=== PATIENT | female | born 1985 | race Caucasian/White ===

== ENCOUNTER 2016-06-29 12:00 | Emergency (ER) | payer MEDICAID ==
[~2016-06-29] VITALS: Ht 152.4 cm; Wt 81.6 kg
[~2016-06-29 12:00] MED LIST: MOTRIN PRN PAIN; MOTRIN800 MG PO; PRENATAL1 TA1 PO
[2016-06-29 12:25] VITALS: BP 142/73
--- NOTE | 2016-06-29 12:54 | NUR ---
Patient ambulated to bed 07.
--- NOTE | 2016-06-29 12:59 | NUR ---
PATIENT PRESENTS TO ED WITH COUGH X1 WEEK, SORE THROAT AND SOB . DENIES N/V/D; SKIN IS PINK/WARM/DRY; AAOX4 WITH EVEN AND STEADY GAIT; LUNGS CLEAR BL; HR EVEN AND REGULAR; PT DENIES ANY FEVER, CP AT THIS TIME; PATIENT STATES SORE THROAT 7/10 AT THIS TIME; VSS; PATIENT POSITIONED FOR COMFORT; HOB ELEVATED; BEDRAILS UP X2; BED DOWN. ER MD MADE AWARE OF PT STATUS.
--- NOTE | 2016-06-29 13:00 | NUR ---
Dr. Champagne evaluating patient at bedside.
[2016-06-29 13:15] VITALS: BP 113/76
--- NOTE | 2016-06-29 13:15 | NUR ---
Patient discharged with v/s stable. Written and verbal after care instructions given and explained. Patient alert, oriented and verbalized understanding of instructions. Ambulatory with steady gait. All questions addressed prior to discharge. ID band removed. Patient advised to follow up with PMD. Rx of DM/PHENERGAN given. Patient educated on indication of medication including possible reaction and side effects. Opportunity to ask questions provided and answered.
== END 2016-06-29 13:15 | disposition home or self-care (01) ==
LOC: MED 12:00
DX: J06.9 Acute upper respiratory infection, unspecified (principal); Z90.49 Acquired absence of other specified parts of digestive tract

== ENCOUNTER 2016-11-10 10:59 | Emergency (ER) | payer MEDICAID ==
[~2016-11-10] VITALS: Ht 157.5 cm; Wt 89.9 kg
[2016-11-10 11:26] VITALS: BP 125/87
--- NOTE | 2016-11-10 13:00 | NUR ---
Pt taken to bed 8.
--- NOTE | 2016-11-10 13:16 | NUR ---
31/F c/o burning sensation inside her abdomen and chest. Pt denies pain, denies chest pain, denies SOB. Pt states the sensation started 3 days ago but has been constant today. Denies medical hx. c/o nausea but denies V/D. AOX4, clear speech. Skin warm and dry, normal in color for ethnicity. VSS. Pt placed in position of comfort. All needs addressed. Awaiting ERMD.
--- NOTE | 2016-11-10 13:43 | NUR ---
Patient being evaluated by physician at bedside.
[2016-11-10] MEDS ORDERED: ALUMINUM HYD/MAG/SIMETHICONE 30 ML, DICYCLOMINE HCL LIQUID 20 MG, LIDOCAINE VISCOUS 2% ... PO ONE ×3 (13:45)
--- NOTE | 2016-11-10 13:59 | NUR ---
X-Ray at bedside.
[2016-11-10 14:44] LABS: BASOPHILS # (AUTO) 0.2 K/uL (0.00-0.22); EOSINOPHILS # (AUTO) 0.3 K/uL (0-0.4); EOSINOPHILS % (AUTO) 2.8 % (0.0-4.0); HEMATOCRIT 39.6 % (36-48); HEMOGLOBIN 13.6 g/dL (12.0-16.0); LYMPHOCYTES # (AUTO) 2.4 K/uL (2.5-16.5); LYMPHOCYTES % (AUTO) 24.4 % (20.5-51.1); MEAN CORPUSCULAR HEMOGLOBIN 32 pg (27-31); MEAN CORPUSCULAR HGB CONC 35 g/dL (33-37); MEAN CORPUSCULAR VOLUME 92 fL (80-94); MONOCYTES # (AUTO) 0.7 K/uL (0.8-1.0); MONOCYTES % (AUTO) 7.2 % (1.7-9.3); NEUTROPHILS # (AUTO) 6.1 K/uL (1.8-7.7); PLATELET COUNT (AUTO) 254 K/uL (140-450); RED BLOOD CELL COUNT(AUTO) 4.33 MIL/uL (4.20-5.40); WHITE BLOOD COUNT (AUTO) 9.7 K/uL (4.8-10.8)
--- NOTE | 2016-11-10 14:44 | NUR ---
Patient appears to be resting comfortably in bed. VSS.
[2016-11-10 15:00] LABS: ALBUMIN 3.4 g/dL (3.4-5.0); ANION GAP 11.7 (8-16); CALCIUM 8.1 mg/dL (8.5-10.1); CARBON DIOXIDE 28.6 mmol/L (21-32); CREATININE 0.6 mg/dL (0.6-1.3); POTASSIUM 3.3 mmol/L (3.5-5.1); TOTAL BILIRUBIN 0.3 mg/dL (0.0-1.0); TOTAL PROTEIN, SERUM 7.3 g/dL (6.4-8.2)
[2016-11-10 15:06] LABS: PARTIAL THROMBOPLASTIN TIME 25.4 secs (22-35.6); PROTHROMBIN TIME 10.2 secs (10.8-13.4)
--- NOTE | 2016-11-10 15:50 | NUR ---
PATIENT ELOPED FROM FACILITY. DISCHARGE INSTRUCTIONS NOT GIVEN TO PATIENT. DR. MULLEN NOTIFIED.
[2016-11-10 15:55] VITALS: BP 120/74
== END 2016-11-10 15:50 | disposition left against medical advice (07) ==
LOC: MED 10:59
DX: R07.9 Chest pain, unspecified (principal); R53.1 Weakness; R10.13 Epigastric pain; G89.29 Other chronic pain; M54.9 Dorsalgia, unspecified; Z90.49 Acquired absence of other specified parts of digestive tract
CPT/HCPCS: 36415; 71010; 80053; 81002; 81025; 83880; 84484; 85025; 85610; 85730; 93005; 99285; Q0092

== ENCOUNTER 2017-07-16 07:55 | Emergency (ER) | payer MEDICAID ==
[~2017-07-16] VITALS: Ht 152.4 cm; Wt 85.4 kg
[2017-07-16 08:01] VITALS: BP 126/76
--- NOTE | 2017-07-16 08:04 | NUR ---
PT AMBULATES TO BED 3
[2017-07-16 08:40] LABS: BASOPHILS # (AUTO) 0.2 K/uL (0.00-0.22); BASOPHILS % (AUTO) 2.3 % (0.0-2.0); EOSINOPHILS # (AUTO) 0.1 K/uL (0-0.4); EOSINOPHILS % (AUTO) 1.3 % (0.0-4.0); HEMATOCRIT 37.7 % (36-48); HEMOGLOBIN 12.7 g/dL (12.0-16.0); LYMPHOCYTES # (AUTO) 2.2 K/uL (2.5-16.5); LYMPHOCYTES % (AUTO) 22.1 % (20.5-51.1); MEAN CORPUSCULAR HEMOGLOBIN 31 pg (27-31); MEAN CORPUSCULAR HGB CONC 34 g/dL (33-37); MEAN CORPUSCULAR VOLUME 91 fL (80-94); MONOCYTES # (AUTO) 0.9 K/uL (0.8-1.0); NEUTROPHILS # (AUTO) 6.6 K/uL (1.8-7.7); NEUTROPHILS % (AUTO) 65.3 % (42.2-75.2); PLATELET COUNT (AUTO) 309 K/uL (140-450); RED BLOOD CELL COUNT(AUTO) 4.15 MIL/uL (4.20-5.40); RED CELL DISTRIBUTION WIDTH 12.6 % (11.6-13.7); WHITE BLOOD COUNT (AUTO) 9.9 K/uL (4.8-10.8)
[2017-07-16 08:54] LABS: ANION GAP 12.4 (8-16); CARBON DIOXIDE 25.1 mmol/L (21-32); CREATININE 0.6 mg/dL (0.6-1.3); POTASSIUM 3.5 mmol/L (3.5-5.1)
[2017-07-16 09:09] LABS: ALBUMIN 3.2 g/dL (3.4-5.0); THYROID STIMULATING HORMONE 0.24 uIU/mL (0.34-3.74); TOTAL BILIRUBIN 0.3 mg/dL (0.0-1.0)
[2017-07-16 10:50] VITALS: BP 128/75
--- NOTE | 2017-07-16 10:52 | NUR ---
pt stated understood all informtion givenupon d/c home vitals stable follow up care given all text explained to pt by pain scale 0/10 at time of discharge.
== END 2017-07-16 10:52 | disposition home or self-care (01) ==
LOC: MED 07:55
DX: E03.9 Hypothyroidism, unspecified (principal); Z90.49 Acquired absence of other specified parts of digestive tract
CPT/HCPCS: 36415; 76536; 80053; 84443; 85025; 99285; Q0092

== ENCOUNTER 2018-01-04 00:40 | Emergency (ER) | payer MEDICAID ==
[~2018-01-04] VITALS: Ht 152.4 cm; Wt 81.6 kg
[2018-01-04 00:50] VITALS: BP 126/84
--- NOTE | 2018-01-04 00:55 | NUR ---
PT TAKEN TO BED 8
--- NOTE | 2018-01-04 01:10 | NUR ---
Patient presents to ED with complaints of cough for the past 2 weeks. Pt found resting comfortably in bed. No respiratory distress. No cough noted during assessment. Lungs clear bilaterally. Pt also c/o nasal congestion. No rhinorrhea noted. AOX4, clear speech. VSS. Pt appears comfortably. NAD noted. Pending x-ray exam.
--- NOTE | 2018-01-04 01:13 | NUR ---
X-Ray at bedside.
[2018-01-04 01:37] VITALS: BP 126/84
--- NOTE | 2018-01-04 01:37 | NUR ---
Patient discharged with v/s stable. Written and verbal after care instructions given and explained. Patient alert, oriented and verbalized understanding of instructions. Ambulatory with steady gait. All questions addressed prior to discharge. ID band removed. Patient advised to follow up with PMD. Rx of Prednisone, Promethazine, Flonase given. Patient educated on indication of medication including possible reaction and side effects. Opportunity to ask questions provided and answered.
== END 2018-01-04 01:37 | disposition home or self-care (01) ==
LOC: MED 00:40
DX: J30.9 Allergic rhinitis, unspecified (principal); E03.9 Hypothyroidism, unspecified
CPT/HCPCS: 71045; 99283; Q0092

== ENCOUNTER 2018-02-13 07:50 | Emergency (ER) | payer MEDICAID ==
[~2018-02-13] VITALS: Ht 152.4 cm; Wt 86.2 kg
[2018-02-13 07:55] VITALS: BP 131/76
[2018-02-13] MEDS: KETOROLAC 30 MG/ML VIAL IM ONE (08:40)
[2018-02-13 09:00] VITALS: BP 131/76
== END 2018-02-13 09:00 | disposition home or self-care (01) ==
LOC: MED 07:50
DX: R09.1 Pleurisy (principal); R05 Cough; M54.6 Pain in thoracic spine; E03.9 Hypothyroidism, unspecified
CPT/HCPCS: 71045; 96372; 99283; J1885; Q0092

== ENCOUNTER 2019-03-05 20:33 | Emergency (ER) | payer MEDICAID ==
[~2019-03-05] VITALS: Ht 157.5 cm; Wt 90.7 kg
[2019-03-05 20:47] VITALS: BP 141/91
--- NOTE | 2019-03-05 20:59 | NUR ---
PT TAKEN TO BED 3
--- NOTE | 2019-03-05 21:02 | NUR ---
33/F PRESENTED TO ED WITH C/O STATES FOR THE LAST THREE DAYS SHE HAS FELT THAT SOMETHING IS IN HER R EYE AND NOW IT IS SWOLLEN AND SHE IS HAVING DIFFICULTY WITH VISION. PT STATES SHE'S SEEING SPOTS IN THE R EYE. +SWELLING, +REDNESS NOTED. REPORTED PAIN 7/10 PMH:NONE NKA
[2019-03-05] MEDS ORDERED: FLUORESCEIN OPTH STRIP 0.6 MG OP ONE (21:20)
[2019-03-05] MEDS ORDERED: TETRACAINE HCL/PF 0.5% OPTH 4 ML BTL OP ONE (21:20)
--- NOTE | 2019-03-05 21:21 | NUR ---
Dr. Johnson examining patient.
[2019-03-05] MEDS ORDERED: ERYTHROMYCIN 0.5% OPTH OINT 1 GM TUBE OP ONE (21:55)
[2019-03-05] MEDS ORDERED: ERYTHROMYCIN 0.5% OPTH OINT 1 GM TUBE ONE (22:06)
[2019-03-05 22:23] VITALS: BP 135/88
--- NOTE | 2019-03-05 22:23 | NUR ---
Patient discharged with v/s stable. Written and verbal after care instructions given and explained. Patient alert, oriented and verbalized understanding of instructions. Ambulatory with steady gait. All questions addressed prior to discharge. ID band removed. Patient advised to follow up with PMD. Rx of NORCO, ERYTHROMYCIN given. Patient educated on indication of medication including possible reaction and side effects. Opportunity to ask questions provided and answered.
== END 2019-03-05 22:23 | disposition home or self-care (01) ==
LOC: MED 20:33
DX: S05.01XA Injury of conjunctiva and corneal abrasion without foreign body, right eye, initial encounter (principal); Z90.49 Acquired absence of other specified parts of digestive tract; Z98.890 Other specified postprocedural states; X58.XXXA Exposure to other specified factors, initial encounter; Y93.89 Activity, other specified; Y92.89 Other specified places as the place of occurrence of the external cause; Y99.8 Other external cause status
CPT/HCPCS: 99284

== ENCOUNTER 2019-03-12 11:27 | Emergency (ER) | payer MEDICAID ==
[~2019-03-12] VITALS: Ht 157.5 cm; Wt 90.7 kg
[2019-03-12 11:29] VITALS: BP 126/80
--- NOTE | 2019-03-12 11:29 | NUR ---
33F C/O LT EYE SWELLING AND PAIN X 2 DAYS. DENIES TRAUMA BUT STATES "MAYBE SOMETHING FLEW IN MY EYE". STATES ITCHING AND PAIN 7/10 AND BLURRY VISION OF AFFECTED EYE. DENIES DISCHARGE. PATIENT MENTIONED THAT SHE WENT TO HER PHYSICIAN 2 WEEKS AGO BECAUSE HER RIGHT EYE HAD REDNESS. PATIENT DESCRIBES PAIN "BURNING AND GRITTY". ERMD MADE AWARE OF STATUS. SIDE RAILSX1. NO PMHX NKA
--- NOTE | 2019-03-12 11:35 | NUR ---
AMBULATED TO BED 08
--- NOTE | 2019-03-12 11:43 | NUR ---
Dr. Gray evaluating patient at bedside.
[2019-03-12] MEDS ORDERED: FLUORESCEIN OPTH STRIP 0.6 MG OP ONE (11:45)
--- NOTE | 2019-03-12 11:47 | NUR ---
Dr. Gray at bedside.
[2019-03-12 11:55] VITALS: BP 126/80
== END 2019-03-12 11:54 | disposition home or self-care (01) ==
LOC: MED 11:27
DX: H10.9 Unspecified conjunctivitis (principal); Z90.49 Acquired absence of other specified parts of digestive tract; Z98.890 Other specified postprocedural states
CPT/HCPCS: 99282